=== PATIENT | male | born 1975 ===

== ENCOUNTER → 2018-03-17 12:07 | Outpatient (REF) | payer OTHER, SELFPAY ==
[2018-03-17 13:36] LABS: Liquefaction Semen YES (YES); PH Semen 8 (7-8); Sperm Count 95 x10^6/mL (20-150); Sperm Morphology 30 %ABNORM (0-30)
== END ==
LOC: LAB 12:07
PROVIDERS: Visit Provider Nurse Practitioner Family
DX: N46.9 Male infertility, unspecified (principal)
CPT/HCPCS: 89320

== ENCOUNTER → 2020-07-07 09:40 | Outpatient (CLI) | payer OTHER, SELFPAY ==
[2020-07-07 10:41] LABS: COVID19 -Nasal RAPID Negative (Negative)
== END ==
PROVIDERS: Visit Provider Family Medicine Sleep Medicine
DX: Z01.812 Encounter for preprocedural laboratory examination (principal); Z20.828 Contact with and (suspected) exposure to other viral communicable diseases
CPT/HCPCS: 87635; C9803

== ENCOUNTER → 2022-10-23 14:58 | Outpatient (CLI) | payer OTHER, SELFPAY | PROVIDERS: Visit Provider Nurse Practitioner Family | DX: J02.9 Acute pharyngitis, unspecified (principal) | CPT/HCPCS: 87070 ==